=== PATIENT | female | born 1990 | race Caucasian/White ===

== ENCOUNTER 2016-03-06 22:52 | Emergency (ER) | payer OTHER ==
--- NOTE | 2016-03-07 01:56 | ED ORDER SUMMARY ---
..... Patient: TJ EMERSON I OrderSheet [facility] VisitID: [id number] [address] [place] [address] 26y, F Registration Date/Time: 03/06/2016 ORDER SHEET Weight: 54.4 kg (stated) Allergies: Morphine and Related, Penicillins GENERAL ORDERS: GC/Chlamydia (Cervix) (mucus) Urgent (23:20 03/06/2016 Ulises Jennings) (Ack 1:22 Willie R.N.) (1:41 HSoule) Wet Prep (Vaginal) (mucus) Urgent (23:20 03/06/2016 Ulises Jennings) (Ack 1:22 Willie MenezesNDerick) (1:41 HSoule) CBC w Diff Urgent (23:20 03/06/2016 Ulises Jennings) (23:40 EInderjoelzen R.N.) BMP Urgent (23:20 03/06/2016 Ulises Jennings) (23:40 EInderbitzen R.N.) UA-Culture if indicated Urgent (23:20 03/06/2016 Ulises Jennings) (23:40 EInderjoelzen R.N.) Serum Quantitative Urgent (23:20 03/06/2016 Ulises Jennings) (23:40 EInderbitzen R.N.) Pelvic Exam Setup (23:20 03/06/2016 Ulises Jennings) (23:42 EInderbitzen R.N.) MEDICATION ORDERS: IV FLUIDS: IV NS : initial bolus 1000 mL (1000 mL/hr), then none - for X1 (NOW) (23:18 03/06/2016 Ulises Jennings) (23:41 EInderbitzen R.N.) Ceftriaxone IV 1 gm/50mL (NOW) (01:08 03/07/2016 Ulises Jennings) (Ack 1:42 HSoule) (1:54 JBullard R.N.) ORDER SHEET NOTES: [Electronically signed by Rg Cristobal R.N. (02:06 03/07/2016)] [Electronically signed by Tray Walden Dr. (17:30 03/09/2016)] [Electronically locked/signed by Rg Cristobal R.N. (02:06 03/07/2016)]
--- NOTE | 2016-03-07 01:56 | ED CLINICAL REPORT ---
Clinical Report - Physicians/Mid Levels [facility] [address] [place] [address] 03/06/2016 22:52 Patient: TJ EMERSON I Time Seen: 2310; initial patient contact. Arrived- By private vehicle. Historian- patient. HISTORY OF PRESENT ILLNESS Chief Complaint: FLANK PAIN. This started past 2 weeks and is still present and worsening. It was gradual in onset and has been constant but is not gone now. At its maximum, severity described as moderate. When seen in the E.D., severity described as moderate. Modifying factors- worsened by movement. Relieved by rest. It is described as sharp. No radiation. The patient has had nausea. No loss of appetite or vomiting. No additional abdominal pain. No recent travel. Similar symptoms previously: Several times. ( hx of UTI). Recent medical care: The patient was seen recently by a health care provider. REVIEW OF SYSTEMS No constipation, black stools, hematemesis, bloody stools or fever. No headache, chest pain or skin rash. All systems otherwise negative, except as recorded above. PAST HISTORY See nurses notes. Medications: None. Allergies: Morphine and Related. Penicillins. SOCIAL HISTORY Smoker- current status unknown. History of drug use. Is a recovering addict. No alcohol use. No recent travel. Is a local resident. FAMILY HISTORY Negative. ADDITIONAL NOTES The nursing notes have been reviewed. PHYSICAL EXAM Vital Signs: 03/06/2016 23:05 BP: 124/71. HR: 116. RR: 18. O2 saturation: 98%. Temp: 99.1 F. Pain level now: 4/10. Blood pressure normal. Oxygen saturation normal. Appearance: Alert. Oriented X3. No acute distress. Eyes: Pupils equal, round and reactive to light. Eyes normal inspection. ENT: Ears normal. Nose normal. Pharynx normal. Neck: Normal inspection. Neck supple. No JVD. CVS: Tachycardia. Heart sounds normal. Pulses normal. Rhythm normal. Respiratory: No respiratory distress. Breath sounds normal. No rales, rhonchi, wheezes or prolonged expiration. Abdomen: Soft and nontender. Bowel sounds normal. Back: Normal inspection. Mild CVA tenderness on the left. Skin: Skin warm and dry. Normal skin color. No rash. Normal skin turgor. Extremities: Extremities exhibit normal ROM. No lower extremity edema. LABS, X-RAYS, AND EKG Laboratory Tests: UA-Culture if indicated: (SONY: 03/06/2016 23:20) ( [facility] 03/06/2016 23:42) Final results Test Result Flag Units (Reference) URINE COLOR YELLOW URINE APPEARANCE HAZY URINE GLUCOSE NEGATIVE (NEGATIVE) URINE BILIRUBIN NEGATIVE (NEGATIVE) URINE KETONE NEGATIVE (NEGATIVE) URINE SPECIFIC GRAVITY 1.020 (1.010-1.030) URINE PH 7.0 (5.0-8.0) URINE PROTEIN 1+ (NEGATIVE) URINE UROBILINOGEN 1.0 EU/dL (0.2-1.0) URINE NITRITE POSITIVE (NEGATIVE) URINE BLOOD 2+ (NEGATIVE) URINE LEUK ESTERASE POSITIVE (NEGATIVE) URINE RBC 5-10 rbc/hpf (0-1) URINE WBC 25-50 wbc/hpf (0-1) URINE EPITHELIAL CELLS 1-3 EPI/hpf (0-5) URINE BACTERIA MODERATE (2+ TO 3+) (NONE SEEN) URINE COMMENT CULTURE INDICATED URINE CULTURES ARE SET-UP BASED ON THE FOLLOWING CRITERIA:POSITIVE NITRITEPOSITIVE LEUKOCYTE ESTERASEGREATER THAN 10 WHITE BLOOD CELLSMODERATE (2+) OR GREATER BACTERIA CBC w Diff: (SONY: 03/06/2016 23:30) ( [facility] 03/07/2016 00:30) Final results Test Result Flag Units (Reference) WHITE BLOOD COUNT 11.4 K/uL (4.5-11.5) RED BLOOD COUNT 4.51 M/uL (4.00-5.20) HEMOGLOBIN 12.8 gm/dL (12.0-16.0) HEMATOCRIT 40.1 % (36.0-46.0) MEAN CELL VOLUME 89 fL (80-100) MEAN CORPUSCULAR HGB 28 pg (26-34) MEAN CORPUSCULAR HGB CONC 32 g/dL (31-37) RED CELL DISTRIBUTION WIDTH 13.4 % (11.6-14.8) PLATELET COUNT 305 K/uL (150-400) NEUTROPHIL % 69.9 % (50-75) LYMPH % 22.8 L % (25-40) MONO % 6.3 % (3-14) EOSINOPHIL % 0.8 % (0-4) BASOPHIL % 0.2 % (0-2) BMP: (SONY: 03/06/2016 23:30) ( MsgRcvd 03/07/2016 00:54) Final results Test Result Flag Units (Reference) GLUCOSE 76 mg/dL (70-110) BUN 10 mg/dL (7-18) CREATININE 0.7 mg/dL (0.6-1.3) Estimated GFR >60 mL/min Estimated GFR- >60 mL/min Note: Persistent reduction over 3 months in eGFR<60 mL/min/1.73 m2 defines CKD. Patients with eGFR values>=60 mL/min/1.73 m2 may also have CKD if evidence ofpersistent proteinuria. Additional information may be foundat www.kidney.org. SODIUM 141 mmol/L (136-145) POTASSIUM 3.6 mmol/L (3.5-5.1) CHLORIDE 103 mmol/L (98-107) CARBON DIOXIDE 30 mmol/L (21-32) CALCIUM 9.2 mg/dL (8.5-10.1) BETA HCG, QUANTITATIVE <1 mIU/mL REFERENCE RANGE:Adult Males: <2 mIU/mLNon- Females: <6 mIU/mL Females:Approximate Approximate hCGGestational Age Range (mIU/mL) 0-1 week 0-501-2 weeks 40-3002-3 weeks 100-19451-4 weeks 500-57619-1 months 5,000-200,0002-3 months 10,000-100,0002nd trimester 3,000-50,0003rd trimester 1,000-50,000 Culture, Urine: (SONY: 03/06/2016 23:20) ( MigRcvd 03/09/2016 10:32) Final results Test Result Flag Units (Reference) CULTURE, URINE DATE: 03/09/16 PRELIM REPORT: FINAL REPORT -- ESCCOL QUANTITATIVE URINE GROWTH: GREATER THAN 100,000 CFU/mL AMOXICILLIN/CLAVULANATE AMPICILLIN S AMPICILLIN/SULBACTAM S CEFAZOLIN S CEFTRIAXONE S CEFEPIME S CEFUROXIME CIPROFLOXACIN S ERTAPENEM S GENTAMICIN S IMIPENEM S LEVOFLOXACIN S MEROPENEM S NITROFURANTOIN S TETRACYCLINE PIP/TAZO S TRIMETHOPRIM/SULFAMETHOXAZOLE S Wet Prep: (SONY: 03/06/2016 01:40) ( MsgRcvd 03/07/2016 01:50) Final results SPECIMEN DESCRIPTION: MUCUS Test Result Flag Units (Reference) WET MOUNT CLUE CELLS:: FEW * EPITHELIAL CELLS: MANY -- SOURCE?: VAGINAL WHITE BLOOD CELLS: FEW TRICHOMONAS:: MODERATE * -- YEAST:: NONE . PROGRESS AND PROCEDURES Course of Care: the patient is a 26-year-old female with no pertinent past medical history presenting for evaluation of flank pain. Patient is primarily having flank pain on the left side. Patient also reports that she is having some bilateral symptoms however this is primarily located to the left flank. Patient with history of urinary tract infection in the past but no definitive cause for the frequent UTIs. Patient is also concerned about sexual transmitted infections at this time. Had discussion with patient in regards to risk factors. Patient describes low risk however states that she would like to be evaluated. I discussion with patient in regards to pelvic exam as well as laboratory studies. Patient is agreeable to the treatment plan. Patient appears nontoxic and is in no acute distress. Workup shows patient has significant urinary tract infection. Antibiotics for urinary tract infection has been ordered. At this time the patient's wet prep was noted to be negative. However upon reviewing the patient's chart, the Trichomonas is noted to be positive. This was different from the laboratory studies that I reviewed initially when the patient was here. I had called the patient back and phoned in a prescription for metronidazole 500 mgtwice a day for 7 days and cautioned with use with alcohol. Patient described a pharmacy located in [place] at [facility] at [address] Was able to find a pharmacy on the worldwide web. Confirmed with pharmacy that the patient has filled out a prescription that recently. Patient was informed to roll picker her prescription as soon as possible for Trichomonas. Patient otherwise reports being in good health and feeling better. I discussion with patient in regards to her workup, diagnosis, home care, follow-up, and return precautions. QUESTIONS answered. The patient expressed understanding of these instructions and was agreeable to them. Informed patient about the pending gonorrhea and chlamydia testing. Patient was agreeable. Disposition: Discharged. Condition: good. CLINICAL IMPRESSION Acute pyelonephritis (left). Acute trichomonas vaginitis INSTRUCTIONS Warnings: GENERAL WARNINGS: Return or contact your physician immediately if your condition worsens or changes unexpectedly, if not improving as expected, or if other problems arise. SPECIFICALLY, return if you develop pain in the abdomen, fever, vomiting, the inability to keep fluids down, blood in vomitus, blood in diarrhea, fainting or lightheadedness. Your Current Medications: CONTINUE TAKING THE FOLLOWING MEDICATIONS: None*. Prescription Medications: Keflex 500 mg: every 8 hours for 10 days. Substitution is permissible. (disp 30 caps) Motrin 600 mg tablets: take 1 tablet orally every 6 hours as needed for pain, stiffness, swelling or fever. Dispense thirty (30). No refill. Substitution is permissible. OTC Medications: Tylenol (available over the counter): take according to label instructions. Follow-up: Return to the emergency department as needed. Follow up with your doctor in three days. Reason for referral: recheck today's concerns. Summary of care provided to patient via paper. Screening today revealed the patient's blood pressure to be in the normal range. The patient should follow up with a primary care provider for blood pressure management. Understanding of the discharge instructions verbalized by patient. (Electronically signed by Tray Walden Dr. 03/09/2016 17:30)
--- NOTE | 2016-03-07 01:56 | ED ORDER SUMMARY ---
..... Patient: TJ EMERSON I OrderSheet [facility] VisitID: [id number] [address] [place] [address] 26y, F Registration Date/Time: 03/06/2016 ORDER SHEET Weight: 54.4 kg (stated) Allergies: Morphine and Related, Penicillins GENERAL ORDERS: GC/Chlamydia (Cervix) (mucus) Urgent (23:20 03/06/2016 Ulises Jennings) (Ack 1:22 Willie R.N.) (1:41 HSoule) Wet Prep (Vaginal) (mucus) Urgent (23:20 03/06/2016 Ulises Jennings) (Ack 1:22 Willie MenezesNDerick) (1:41 HSoule) CBC w Diff Urgent (23:20 03/06/2016 Ulises Jennings) (23:40 EInderjeolzen R.N.) BMP Urgent (23:20 03/06/2016 Ulises Jennings) (23:40 EInderbitzen R.N.) UA-Culture if indicated Urgent (23:20 03/06/2016 Ulises Jennings) (23:40 EInderjoelzen R.N.) Serum Quantitative Urgent (23:20 03/06/2016 Ulises Jennings) (23:40 EInderbitzen R.N.) Pelvic Exam Setup (23:20 03/06/2016 Ulises Jennings) (23:42 EInderbitzen R.N.) MEDICATION ORDERS: IV FLUIDS: IV NS : initial bolus 1000 mL (1000 mL/hr), then none - for X1 (NOW) (23:18 03/06/2016 Ulises Jennings) (23:41 EInderbitzen R.N.) Ceftriaxone IV 1 gm/50mL (NOW) (01:08 03/07/2016 Ulises Jennings) (Ack 1:42 HSoule) (1:54 JBullard R.N.) ORDER SHEET NOTES: [Electronically signed by Rg Cristobal R.N. (02:06 03/07/2016)] [Electronically signed by Tray Walden Dr. (17:30 03/09/2016)] [Electronically locked/signed by Rg Cristobal R.N. (02:06 03/07/2016)]
--- NOTE | 2016-03-07 01:56 | ED CLINICAL REPORT ---
Clinical Report - Physicians/Mid Levels [facility] [address] [place] [address] 03/06/2016 22:52 Patient: TJ EMERSON I Time Seen: 2310; initial patient contact. Arrived- By private vehicle. Historian- patient. HISTORY OF PRESENT ILLNESS Chief Complaint: FLANK PAIN. This started past 2 weeks and is still present and worsening. It was gradual in onset and has been constant but is not gone now. At its maximum, severity described as moderate. When seen in the E.D., severity described as moderate. Modifying factors- worsened by movement. Relieved by rest. It is described as sharp. No radiation. The patient has had nausea. No loss of appetite or vomiting. No additional abdominal pain. No recent travel. Similar symptoms previously: Several times. ( hx of UTI). Recent medical care: The patient was seen recently by a health care provider. REVIEW OF SYSTEMS No constipation, black stools, hematemesis, bloody stools or fever. No headache, chest pain or skin rash. All systems otherwise negative, except as recorded above. PAST HISTORY See nurses notes. Medications: None. Allergies: Morphine and Related. Penicillins. SOCIAL HISTORY Smoker- current status unknown. History of drug use. Is a recovering addict. No alcohol use. No recent travel. Is a local resident. FAMILY HISTORY Negative. ADDITIONAL NOTES The nursing notes have been reviewed. PHYSICAL EXAM Vital Signs: 03/06/2016 23:05 BP: 124/71. HR: 116. RR: 18. O2 saturation: 98%. Temp: 99.1 F. Pain level now: 4/10. Blood pressure normal. Oxygen saturation normal. Appearance: Alert. Oriented X3. No acute distress. Eyes: Pupils equal, round and reactive to light. Eyes normal inspection. ENT: Ears normal. Nose normal. Pharynx normal. Neck: Normal inspection. Neck supple. No JVD. CVS: Tachycardia. Heart sounds normal. Pulses normal. Rhythm normal. Respiratory: No respiratory distress. Breath sounds normal. No rales, rhonchi, wheezes or prolonged expiration. Abdomen: Soft and nontender. Bowel sounds normal. Back: Normal inspection. Mild CVA tenderness on the left. Skin: Skin warm and dry. Normal skin color. No rash. Normal skin turgor. Extremities: Extremities exhibit normal ROM. No lower extremity edema. LABS, X-RAYS, AND EKG Laboratory Tests: UA-Culture if indicated: (SONY: 03/06/2016 23:20) ( [facility] 03/06/2016 23:42) Final results Test Result Flag Units (Reference) URINE COLOR YELLOW URINE APPEARANCE HAZY URINE GLUCOSE NEGATIVE (NEGATIVE) URINE BILIRUBIN NEGATIVE (NEGATIVE) URINE KETONE NEGATIVE (NEGATIVE) URINE SPECIFIC GRAVITY 1.020 (1.010-1.030) URINE PH 7.0 (5.0-8.0) URINE PROTEIN 1+ (NEGATIVE) URINE UROBILINOGEN 1.0 EU/dL (0.2-1.0) URINE NITRITE POSITIVE (NEGATIVE) URINE BLOOD 2+ (NEGATIVE) URINE LEUK ESTERASE POSITIVE (NEGATIVE) URINE RBC 5-10 rbc/hpf (0-1) URINE WBC 25-50 wbc/hpf (0-1) URINE EPITHELIAL CELLS 1-3 EPI/hpf (0-5) URINE BACTERIA MODERATE (2+ TO 3+) (NONE SEEN) URINE COMMENT CULTURE INDICATED URINE CULTURES ARE SET-UP BASED ON THE FOLLOWING CRITERIA:POSITIVE NITRITEPOSITIVE LEUKOCYTE ESTERASEGREATER THAN 10 WHITE BLOOD CELLSMODERATE (2+) OR GREATER BACTERIA CBC w Diff: (SONY: 03/06/2016 23:30) ( [facility] 03/07/2016 00:30) Final results Test Result Flag Units (Reference) WHITE BLOOD COUNT 11.4 K/uL (4.5-11.5) RED BLOOD COUNT 4.51 M/uL (4.00-5.20) HEMOGLOBIN 12.8 gm/dL (12.0-16.0) HEMATOCRIT 40.1 % (36.0-46.0) MEAN CELL VOLUME 89 fL (80-100) MEAN CORPUSCULAR HGB 28 pg (26-34) MEAN CORPUSCULAR HGB CONC 32 g/dL (31-37) RED CELL DISTRIBUTION WIDTH 13.4 % (11.6-14.8) PLATELET COUNT 305 K/uL (150-400) NEUTROPHIL % 69.9 % (50-75) LYMPH % 22.8 L % (25-40) MONO % 6.3 % (3-14) EOSINOPHIL % 0.8 % (0-4) BASOPHIL % 0.2 % (0-2) BMP: (SONY: 03/06/2016 23:30) ( MsgRcvd 03/07/2016 00:54) Final results Test Result Flag Units (Reference) GLUCOSE 76 mg/dL (70-110) BUN 10 mg/dL (7-18) CREATININE 0.7 mg/dL (0.6-1.3) Estimated GFR >60 mL/min Estimated GFR- >60 mL/min Note: Persistent reduction over 3 months in eGFR<60 mL/min/1.73 m2 defines CKD. Patients with eGFR values>=60 mL/min/1.73 m2 may also have CKD if evidence ofpersistent proteinuria. Additional information may be foundat www.kidney.org. SODIUM 141 mmol/L (136-145) POTASSIUM 3.6 mmol/L (3.5-5.1) CHLORIDE 103 mmol/L (98-107) CARBON DIOXIDE 30 mmol/L (21-32) CALCIUM 9.2 mg/dL (8.5-10.1) BETA HCG, QUANTITATIVE <1 mIU/mL REFERENCE RANGE:Adult Males: <2 mIU/mLNon- Females: <6 mIU/mL Females:Approximate Approximate hCGGestational Age Range (mIU/mL) 0-1 week 0-501-2 weeks 40-3002-3 weeks 100-23257-7 weeks 500-23524-8 months 5,000-200,0002-3 months 10,000-100,0002nd trimester 3,000-50,0003rd trimester 1,000-50,000 Culture, Urine: (SONY: 03/06/2016 23:20) ( CagRcvd 03/09/2016 10:32) Final results Test Result Flag Units (Reference) CULTURE, URINE DATE: 03/09/16 PRELIM REPORT: FINAL REPORT -- ESCCOL QUANTITATIVE URINE GROWTH: GREATER THAN 100,000 CFU/mL AMOXICILLIN/CLAVULANATE AMPICILLIN S AMPICILLIN/SULBACTAM S CEFAZOLIN S CEFTRIAXONE S CEFEPIME S CEFUROXIME CIPROFLOXACIN S ERTAPENEM S GENTAMICIN S IMIPENEM S LEVOFLOXACIN S MEROPENEM S NITROFURANTOIN S TETRACYCLINE PIP/TAZO S TRIMETHOPRIM/SULFAMETHOXAZOLE S Wet Prep: (SONY: 03/06/2016 01:40) ( MsgRcvd 03/07/2016 01:50) Final results SPECIMEN DESCRIPTION: MUCUS Test Result Flag Units (Reference) WET MOUNT CLUE CELLS:: FEW * EPITHELIAL CELLS: MANY -- SOURCE?: VAGINAL WHITE BLOOD CELLS: FEW TRICHOMONAS:: MODERATE * -- YEAST:: NONE . PROGRESS AND PROCEDURES Course of Care: the patient is a 26-year-old female with no pertinent past medical history presenting for evaluation of flank pain. Patient is primarily having flank pain on the left side. Patient also reports that she is having some bilateral symptoms however this is primarily located to the left flank. Patient with history of urinary tract infection in the past but no definitive cause for the frequent UTIs. Patient is also concerned about sexual transmitted infections at this time. Had discussion with patient in regards to risk factors. Patient describes low risk however states that she would like to be evaluated. I discussion with patient in regards to pelvic exam as well as laboratory studies. Patient is agreeable to the treatment plan. Patient appears nontoxic and is in no acute distress. Workup shows patient has significant urinary tract infection. Antibiotics for urinary tract infection has been ordered. At this time the patient's wet prep was noted to be negative. However upon reviewing the patient's chart, the Trichomonas is noted to be positive. This was different from the laboratory studies that I reviewed initially when the patient was here. I had called the patient back and phoned in a prescription for metronidazole 500 mgtwice a day for 7 days and cautioned with use with alcohol. Patient described a pharmacy located in [place] at [facility] at [address] Was able to find a pharmacy on the worldwide web. Confirmed with pharmacy that the patient has filled out a prescription that recently. Patient was informed to olive picker her prescription as soon as possible for Trichomonas. Patient otherwise reports being in good health and feeling better. I discussion with patient in regards to her workup, diagnosis, home care, follow-up, and return precautions. QUESTIONS answered. The patient expressed understanding of these instructions and was agreeable to them. Informed patient about the pending gonorrhea and chlamydia testing. Patient was agreeable. Disposition: Discharged. Condition: good. CLINICAL IMPRESSION Acute pyelonephritis (left). Acute trichomonas vaginitis INSTRUCTIONS Warnings: GENERAL WARNINGS: Return or contact your physician immediately if your condition worsens or changes unexpectedly, if not improving as expected, or if other problems arise. SPECIFICALLY, return if you develop pain in the abdomen, fever, vomiting, the inability to keep fluids down, blood in vomitus, blood in diarrhea, fainting or lightheadedness. Your Current Medications: CONTINUE TAKING THE FOLLOWING MEDICATIONS: None*. Prescription Medications: Keflex 500 mg: every 8 hours for 10 days. Substitution is permissible. (disp 30 caps) Motrin 600 mg tablets: take 1 tablet orally every 6 hours as needed for pain, stiffness, swelling or fever. Dispense thirty (30). No refill. Substitution is permissible. OTC Medications: Tylenol (available over the counter): take according to label instructions. Follow-up: Return to the emergency department as needed. Follow up with your doctor in three days. Reason for referral: recheck today's concerns. Summary of care provided to patient via paper. Screening today revealed the patient's blood pressure to be in the normal range. The patient should follow up with a primary care provider for blood pressure management. Understanding of the discharge instructions verbalized by patient. (Electronically signed by Tray Walden Dr. 03/09/2016 17:30)
--- NOTE | 2016-03-07 01:56 | ED NURSING NOTES ---
Clinical Report - Nurses [facility] [address] [place] [address] 03/06/2016 22:52 Patient: WILLIAM EMERSON I TRIAGE Triage time 23:Mar 06 2016. Acuity: LEVEL 3. Chief Complaint: PELVIC PAIN, URGENCY and FREQUENCY and (feels like bladder isnt emptying). 23:05 03/06/16. --23:12 Mone Nunez R.N. 23:05 03/06/16. BP: 124/71. HR: 116. RR: 18. O2 saturation: 98%. Temp: 99.1 F. Pain level now: 05/31. --23:12 Mone Nunez R.N. Weight: 54.4 kg stated. Height/Length: 62 inches Per Patient. BMI: 22. --23:05 Mone Nunez R.N. Medications None. --23:07 Mone Nunez R.N. Medication/allergy information source: the patient. --23:12 Mone Nunez R.N. Allergies Morphine and Related. Penicillins. --23:07 Mone Nunez R.N. History Arrived by private vehicle. Historian: patient. Onset. (2 weeks). ( Pain in both flanks. Wants STD check). She has had flank pain. No fever. 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 PAST MEDICAL HX: Last normal menstrual period now- states has some type of implanted device, not sure if nuvoring or IUD. Sexual history - sexually active, engages in unprotected sex and has multiple partners. Has not received pneumonia vaccine, hepatitis B immunization or seasonal influenza immunization. SOCIAL HX: Heavy tobacco smoker (cigarette)- 1 pack per day. History of drug use: narcotics, heroin. Recently used drugs just prior to arrival. No infectious disease exposure. ABUSE ASSESSMENT: No report of abuse. SELF HARM ASSESSMENT: A self harm assessment was performed. The patient answered "no" to the question "Have you recently felt down, depressed, or hopeless?", "Have you noticed less interest or pleasure in doing things?", "Do you have thoughts of harming or killing yourself?", "Are you here because you tried to hurt yourself?", "Have you ever tried to hurt yourself before today?", "Have you recently had thoughts about harming or killing others?" and "Do you have any dangerous items in your possession?". FALL RISK ASSESSMENT: Fall risk assessment completed. No fall risk identified. NUTRITIONAL RISK ASSESSMENT: The nutritional risk assessment revealed no deficiencies. FUNCTIONAL ASSESSMENT: Functional assessment: no impairments noted. LEARNING NEEDS ASSESSMENT: The learning needs assessment revealed no barriers. SKIN INTEGRITY ASSESSMENT: Skin integrity risk assessment completed. No skin integrity risk identified. --23:12 Mone Nunez R.N. PROBLEMS: Substance Abuse. UTI - Urinary Tract Infection. Cystitis. --23:08 Mone Nunez R.N. ADDITIONAL SURGERIES: . Appendectomy. Tonsillectomy. --23:08 Mone Nunez R.N. Interventions ID band on patient. --23:12 Mone Nunez R.N. PHYSICAL ASSESSMENT 23:05 03/06/16. Ambulatory to room. GENERAL / NEURO / PSYCH: Alert. Oriented X 4. HEENT: Mucous membranes are pink. RESPIRATORY: Respirations not labored. Breath sounds within normal limits. CVS: Capillary refill less than 2 seconds. GI / : Abdomen soft. No abdominal distention or tenderness, rebound tenderness or guarding. No emesis noted. She has had frequency of urination. Urgency of urination. Scant vaginal bleeding present, consisting of dark blood. No CVA tenderness, pain with urination or hematuria noted. Patient is not incontinent of urine. SKIN: Skin is warm and dry. --23:15 Mone Nunez R.N. NURSING PROGRESS NOTES 23:25 03/06/16. Patient ID band checked for patient name and birthdate: patient confirmed. Instructions provided to collect clean catch urine and patient verbalized understanding. Clean catch urine collected with return of yellow-colored clear urine; sample sent to lab for urinalysis. Specimen labeled in the presence of the patient. --23:38 Mone Nunez R.N. 23:30 03/06/16. The initial plan of care for this patient includes an assessment with efforts to address the patient's anxiety; the presence of pain; impairment of the gastrointestinal and genitourinary system; hydration needs. This plan of care was discussed with the patient. Patient gowned. Reassurance given. Patient identifiers checked. Call light placed in reach. Side rails up x 1. Bed placed in lowest position. Brakes of bed on. Patient ready for evaluation. --23:38 Mone Nunez R.N. 23:30 03/06/2016 Site #1 started via IV in the right forearm with an 20g angiocath, with aseptic technique and good blood return; one attempt. Blood drawn: rainbow set. Labeled in the presence of the patient and sent to the lab. Saline lock flushed with 10 mL saline. --23:39 Mone Nunez R.N. 23:35 03/06/2016 Started bag #1 1000 mL IV Fluids IV NS (Saline); at 2000 mL/hr over 30 minute(s) via site #1. Allergies verified and confirmed 5 rights. IV patency established. IV site checked: no pain, redness, or swelling. IV flushed thoroughly pre- and post-medication administration. --23:41 Mone Nunez R.N. 00:05 03/07/2016 IV Fluids IV NS Discontinued: bag #1 completed. Total amount infused: 1000 mL. IV patency established. IV site checked: no pain, redness, or swelling. IV flushed thoroughly. --00:10 Mone Nunez R.N. 00:46 03/07/16. Care transferred and report given (to BETY Saravia). --00:46 Mone Nunez R.N. PELVIC EXAM: Pelvic exam performed by ED physician. Assisted by one nurse. Preparation: pelvic tray; patient placed in lithotomy position. Procedure: speculum exam. Light amount of bright red vaginal bleeding noted. Specimens collected and sent to lab: GC, chlamydia and wet prep. Status post-procedure: she was stable. Total time of assist / procedure: 15 minutes. --01:42 Mahsa Soares 01:29 03/07/2016 Started 1 gm of Ceftriaxone IVPB in bag #1 50 mL; at 100 mL/hr over 30 minute(s) via site #1 via IV pump. Allergies verified and confirmed 5 rights. IV patency established. IV site checked: no pain, redness, or swelling. IV flushed thoroughly pre- and post-medication administration. --:54 Juan Raines R.N. 01:54 03/07/2016 Site #1 removed upon discharge. Pressure dressing applied. --01:54 Juan Raines R.N. DISPOSITION / DISCHARGE Departure time: 02:06. Condition at departure: stable. The goals identified in the patient's plan of care were met. No learning barriers present. Discharge instructions provided and reviewed with the patient. Reviewed medication(s) side effects, precautions, dosing and course information. Prescription(s) given to the patient (William verbalizes importance of taking all prescribed antibiotics. She verbalizes safe, proper use of all prescribed pain meds for optimal pain management at home.). Reviewed need for increased fluid intake. Activity restrictions (rest) reviewed. Patient verbalized understanding. Written instructions provided in Belarusian. ( William verbalizes understanding of all d/c instructions including need to f/u with PCP. She has no questions and voices no concerns at this time.). The patient was discharged by the physician. She was discharged home and unaccompanied at time of discharge. She left the Emergency Department ambulatory and via private vehicle. Patient driving. DANIEL COMA SCORE: Daniel Coma Scale: 15- eyes open spontaneously (4); best verbal response- oriented x 4 (5); best motor response- obeys commands (6). --02:06 Rg Cristobal R.N. 02:04 03/07/16. BP: 125/77 (regular adult cuff) taken on the left arm, via an automated monitor, while sitting. HR: 115 (tachycardic). RR: 18 (regular, unlabored and normal). O2 saturation: 5% on room air. Temp: 98.5 F (oral). Additional comments: Dr. Walden made aware of d/c HR. When he spoke thomas Thomas she stated "My vitals are always like that when I am using, when I am not using they are fine but since I used that is why they are like that.". --02:06 Rg Cristobal R.N. Locked/Released at 03/07/2016 2:06 by Rg Cristobal R.N.
--- NOTE | 2016-03-09 17:30 | ED MAR SUMMARY ---
..... Medication Administration Record [facility] [address] [place] [address] Patient: TJ EMERSON I Visit ID: [id number] 26y, F Weight: 54.4 kg Height/Length: 62 in BMI: 22 ALLERGIES: Morphine and Related, Penicillins Start 23:35 03/06/2016 Mone Nunez RJohn, Stop 00:05 03/07/2016 Mone Nunez R.N. Medication Administered: IV NS (SALINE), Dose: IV Fluids over 30 minute(s), Rate: 2000 mL/hr, Dispensed: 1000 mL bag, Site: #1 right forearm. Medication Ordered: IV NS : initial bolus 1000 mL (1000 mL/hr), then none - for X1 (NOW). Start 01:29 03/07/2016 Juan Raines R.N. Medication Administered: CEFTRIAXONE [IVPB], Dose: 1 gm IVPB over 30 minute(s), Rate: 100 mL/hr, Dispensed: 50 mL bag, Site: #1 right forearm. Medication Ordered: Ceftriaxone IV 1 gm/50mL (NOW).
--- NOTE | 2016-03-09 17:30 | ED DISCHARGE INSTRUCTIONS ---
Patient: TJ EMERSON I General Instructions Merged With [facility] VisitID: [id number] [place] [address] 26y, F Registration Date/Time: 03/06/2016 Acute pyelonephritis (left). Acute trichomonas vaginitis INSTRUCTIONS Warnings: GENERAL WARNINGS: Return or contact your physician immediately if your condition worsens or changes unexpectedly, if not improving as expected, or if other problems arise. SPECIFICALLY, return if you develop pain in the abdomen, fever, vomiting, the inability to keep fluids down, blood in vomitus, blood in diarrhea, fainting or lightheadedness. Your Current Medications: CONTINUE TAKING THE FOLLOWING MEDICATIONS: None*. Prescription Medications: Keflex 500 mg: every 8 hours for 10 days. Substitution is permissible. (disp 30 caps) Motrin 600 mg tablets: take 1 tablet orally every 6 hours as needed for pain, stiffness, swelling or fever. Dispense thirty (30). No refill. Substitution is permissible. OTC Medications: Tylenol (available over the counter): take according to label instructions. Follow-up: Return to the emergency department as needed. Follow up with your doctor in three days. Reason for referral: recheck today's concerns. Summary of care provided to patient via paper. Screening today revealed the patient's blood pressure to be in the normal range. The patient should follow up with a primary care provider for blood pressure management. Understanding of the discharge instructions verbalized by patient. ADDITIONAL INFORMATION Kidney Infection [Adult, Female] An infection of the kidney is also called "pyelonephritis". It usually starts as a bladder infection ("cystitis") which spreads to the kidneys. Pyelonephritis is more serious than a bladder infection. It can cause severe illness if not treated properly. The usual symptoms include an aching pain in the back, side or lower abdomen. Other symptoms may include fever, chills, nausea, vomiting, an urge to urinate and a burning sensation when passing urine. Home Care: Stay home from work or school. Rest in bed until your fever breaks and you are feeling better. Drink lots of fluid (at least 6-8 glasses a day, unless you must restrict fluids for other medical reasons). This will force the medicine into your urinary system and flush the bacteria out of your body. Avoid sexual intercourse until you have finished all of your medicine and your symptoms have gone away. Avoid caffeine, alcohol and spicy foods which may irritate the kidney and bladder. You may use acetaminophen (Tylenol) or ibuprofen (Motrin, Advil) to control pain, unless another pain medicine was prescribed. [NOTE: If you have chronic liver or kidney disease or ever had a stomach ulcer or GI bleeding, talk with your doctor before using these medicines.] Follow Up with your doctor or as advised by our staff for a repeat urine test in 10 days. This will ensure that your infection is fully cleared. [NOTE: If you had an X-ray or CT scan, it will be reviewed by a specialist. You will be notified of any new findings that may affect your care.] Get Prompt Medical Attention if any of the following occur: Fever over 100.4F (38.0C) after 48 hours of treatment No improvement by the third day of treatment Increasing back or abdominal pain Repeated vomiting or inability to take oral medicine Weakness, dizziness or fainting Trichomonas Vaginal Infection Trichomonas is an infection of the vagina. It may be passed by sexual intercourse. This causes a watery vaginal discharge, vaginal itching and discomfort. It may also cause burning with urination. Men may carry and pass this infection without having any symptoms. Home Care: Your sexual partner needs to be treated even if he has no symptoms. He should contact his own doctor or go to the Public Health Department to be examined and treated. Avoid having sex until both you and your partner have finished all antibiotic medicine and all symptoms have gone away. Take all medicine as directed until it is gone. If you dont do this, symptoms may return. Keep the genital area clean and free of discharge by wearing an absorbent sanitary pad. Change the pad often. Shower daily, cleaning the outer vaginal area with plain soap and water. Do not douche during treatment unless advised to do so by your doctor. Routine douching after treatment is no longer recommended to clean the vagina. It raises your risk of vaginal infection and pelvic inflammatory disease. Wear cotton underwear or cotton-lined panty hose. Avoid tight-fitting pants. Follow Up with your doctor if symptoms dont go away after the medicine is finished. Get Prompt Medical Attention If Any Of The Following Occur: Fever of 100.4F (38C) or higher, or as directed by your healthcare provider Lower abdominal pain Rash or joint pain Open sores around the vagina or penis Cephalexin Monohydrate Oral tablet What is this medicine? CEPHALEXIN (sef a ILDA in) is a cephalosporin antibiotic. It is used to treat certain kinds of bacterial infections It will not work for colds, flu, or other viral infections. How should I use this medicine? Take this medicine by mouth with a full glass of water. Follow the directions on the prescription label. This medicine can be taken with or without food. Take your medicine at regular intervals. Do not take your medicine more often than directed. Take all of your medicine as directed even if you think you are better. Do not skip doses or stop your medicine early. Talk to your director of software development regarding the use of this medicine in children. While this drug may be prescribed for selected conditions, precautions do apply. What side effects may I notice from receiving this medicine? Side effects that you should report to your doctor or health healthcare network pricing consultant as soon as possible: allergic reactions like skin rash, itching or hives, swelling of the face, lips, or tongue breathing problems pain or trouble passing urine redness, blistering, peeling or loosening of the skin, including inside the mouth severe or watery diarrhea unusually weak or tired yellowing of the eyes, skin Side effects that usually do not require medical attention (report to your doctor or health healthcare network pricing consultant if they continue or are bothersome): gas or heartburn genital or anal irritation headache joint or muscle pain nausea, vomiting What may interact with this medicine? probenecid some other antibiotics What if I miss a dose? If you miss a dose, take it as soon as you can. If it is almost time for your next dose, take only that dose. Do not take double or extra doses. There should be at least 4 to 6 hours between doses. Where should I keep my medicine? Keep out of the reach of children. Store at room temperature between 59 and 86 degrees F (15 and 30 degrees C). Throw away any unused medicine after the expiration date. What should I tell my health care provider before I take this medicine? They need to know if you have any of these conditions: kidney disease stomach or intestine problems, especially colitis an unusual or allergic reaction to cephalexin, other cephalosporins, penicillins, other antibiotics, medicines, foods, dyes or preservatives or trying to get breast-feeding What should I watch for while using this medicine? Tell your doctor or health healthcare network pricing consultant if your symptoms do not begin to improve in a few days. Do not treat diarrhea with over the counter products. Contact your doctor if you have diarrhea that lasts more than 2 days or if it is severe and watery. If you have diabetes, you may get a false-positive result for sugar in your urine. Check with your doctor or health healthcare network pricing consultant. Ibuprofen Oral tablet What is this medicine? IBUPROFEN (eye BYOO proe fen) is a non-steroidal anti-inflammatory drug (NSAID). It is used for dental pain, fever, headaches or migraines, osteoarthritis, rheumatoid arthritis, or painful monthly periods. It can also relieve minor aches and pains caused by a cold, flu, or sore throat. How should I use this medicine? Take this medicine by mouth with a glass of water. Follow the directions on the prescription label. Take this medicine with food if your stomach gets upset. Try to not lie down for at least 10 minutes after you take the medicine. Take your medicine at regular intervals. Do not take your medicine more often than directed. A special MedGuide will be given to you by the pharmacist with each prescription and refill. Be sure to read this information carefully each time. Talk to your director of software development regarding the use of this medicine in children. Special care may be needed. What side effects may I notice from receiving this medicine? Side effects that you should report to your doctor or health healthcare network pricing consultant as soon as possible: allergic reactions like skin rash, itching or hives, swelling of the face, lips, or tongue black or bloody stools, blood in the urine or in vomit breathing problems changes in vision chest pain general ill feeling or flu-like symptoms nausea or vomiting redness, blistering, peeling or loosening of the skin, including inside the mouth slurred speech or weakness on one side of the body stomach pain unexplained weight gain or swelling unusually weak or tired yellowing of eyes or skin Side effects that usually do not require medical attention (report to your doctor or health healthcare network pricing consultant if they continue or are bothersome): constipation or diarrhea dizziness gas or heartburn stomach upset What may interact with this medicine? Do not take this medicine with any of the following medications: cidofovir ketorolac methotrexate pemetrexed This medicine may also interact with the following medications: alcohol aspirin diuretics lithium other drugs for inflammation like prednisone warfarin What if I miss a dose? If you miss a dose, take it as soon as you can. If it is almost time for your next dose, take only that dose. Do not take double or extra doses. Where should I keep my medicine? Keep out of the reach of children. Store at room temperature between 15 and 30 degrees C (59 and 86 degrees F). Keep container tightly closed. Throw away any unused medicine after the expiration date. What should I tell my health care provider before I take this medicine? They need to know if you have any of these conditions: asthma cigarette smoker drink more than 3 alcohol containing drinks a day heart disease or circulation problems such as heart failure or leg edema (fluid retention) high blood pressure kidney disease liver disease stomach bleeding or ulcers an unusual or allergic reaction to ibuprofen, aspirin, other NSAIDS, other medicines, foods, dyes, or preservatives or trying to get breast-feeding What should I watch for while using this medicine? Tell your doctor or healthcare professional if your symptoms do not start to get better or if they get worse. This medicine does not prevent heart attack or stroke. In fact, this medicine may increase the chance of a heart attack or stroke. The chance may increase with longer use of this medicine and in people who have heart disease. If you take aspirin to prevent heart attack or stroke, talk with your doctor or health healthcare network pricing consultant. Do not take other medicines that contain aspirin, ibuprofen, or naproxen with this medicine. Side effects such as stomach upset, nausea, or ulcers may be more likely to occur. Many medicines available without a prescription should not be taken with this medicine. This medicine can cause ulcers and bleeding in the stomach and intestines at any time during treatment. Ulcers and bleeding can happen without warning symptoms and can cause . To reduce your risk, do not smoke cigarettes or drink alcohol while you are taking this medicine. You may get drowsy or dizzy. Do not drive, use machinery, or do anything that needs mental alertness until you know how this medicine affects you. Do not stand or sit up quickly, especially if you are an older patient. This reduces the risk of dizzy or fainting spells. This medicine can cause you to bleed more easily. Try to avoid damage to your teeth and gums when you brush or floss your teeth. You have been given the following additional information: Pyelonephritis, Female (Adult) Vaginitis, Trichomonas Cephalexin Monohydrate Oral tablet Ibuprofen Oral tablet (Electronically signed by Tray Walden Dr. 03/09/2016 17:30)
--- NOTE | 2016-03-09 17:30 | ED MED RECONCILIATION SUMMARY ---
Patient: TJ EMERSON I Medication Reconciliation Report [facility] VisitID: [id number] [address] [place] [address] 26y, F Registration Date/Time: 03/06/2016 Weight: 54.4 kg Height/Length: 62 in. BMI: 22.0 ALLERGIES: Morphine and Related, Penicillins The patient's Home Medications are listed below: NONE. The source(s) of the original Home Medication information: patient The following Medications were given to the patient in the Emergency Department: IV NS IV Fluids bolus 0, then 2000 mL/hr, administered: 03/06/2016 11:35:00 PM Ceftriaxone [IVPB] IVPB bolus 0, then 1 gm 100 mL/hr, administered: 03/07/2016 1:29:00 AM The following Medications were prescribed to the patient: Keflex 500 mg: every 8 hours for 10 days. Substitution is permissible.(disp 30 caps) -- Tray Walden Dr. Tylenol (available over the counter): take according to label instructions. -- Tray Walden Dr. Motrin 600 mg tablets: take 1 tablet orally every 6 hours as needed for pain, stiffness, swelling or fever. Dispense thirty (30). No refill. Substitution is permissible. -- Tray Walden Dr.
--- NOTE | 2016-03-09 17:30 | ED MED RECONCILIATION SUMMARY ---
Patient: TJ EMERSON I Medication Reconciliation Report [facility] VisitID: [id number] [address] [place] [address] 26y, F Registration Date/Time: 03/06/2016 Weight: 54.4 kg Height/Length: 62 in. BMI: 22.0 ALLERGIES: Morphine and Related, Penicillins The patient's Home Medications are listed below: NONE. The source(s) of the original Home Medication information: patient The following Medications were given to the patient in the Emergency Department: IV NS IV Fluids bolus 0, then 2000 mL/hr, administered: 03/06/2016 11:35:00 PM Ceftriaxone [IVPB] IVPB bolus 0, then 1 gm 100 mL/hr, administered: 03/07/2016 1:29:00 AM The following Medications were prescribed to the patient: Keflex 500 mg: every 8 hours for 10 days. Substitution is permissible.(disp 30 caps) -- Tray Walden Dr. Tylenol (available over the counter): take according to label instructions. -- Tray Walden Dr. Motrin 600 mg tablets: take 1 tablet orally every 6 hours as needed for pain, stiffness, swelling or fever. Dispense thirty (30). No refill. Substitution is permissible. -- Tray Walden Dr.
--- NOTE | 2016-03-09 17:30 | ED MAR SUMMARY ---
..... Medication Administration Record [facility] [address] [place] [address] Patient: TJ EMERSON I Visit ID: [id number] 26y, F Weight: 54.4 kg Height/Length: 62 in BMI: 22 ALLERGIES: Morphine and Related, Penicillins Start 23:35 03/06/2016 Mone Nunez RJohn, Stop 00:05 03/07/2016 Mone Nunez R.N. Medication Administered: IV NS (SALINE), Dose: IV Fluids over 30 minute(s), Rate: 2000 mL/hr, Dispensed: 1000 mL bag, Site: #1 right forearm. Medication Ordered: IV NS : initial bolus 1000 mL (1000 mL/hr), then none - for X1 (NOW). Start 01:29 03/07/2016 Juan Raines R.N. Medication Administered: CEFTRIAXONE [IVPB], Dose: 1 gm IVPB over 30 minute(s), Rate: 100 mL/hr, Dispensed: 50 mL bag, Site: #1 right forearm. Medication Ordered: Ceftriaxone IV 1 gm/50mL (NOW).
== END 2016-03-07 02:05 | disposition home or self-care (01) ==
LOC: ED SRH 22:52
DX: N10 Acute pyelonephritis (principal); A59.01 Trichomonal vulvovaginitis; Z88.0 Allergy status to penicillin; Z88.5 Allergy status to narcotic agent
CPT/HCPCS: 90004; 90047; 90148; 90195; 90197; 90469; 91227; 91228; 95059